=== PATIENT | male | born 1965 | race Caucasian/White ===

== ENCOUNTER 2020-10-21 18:44 | Emergency (ER) | payer OTHER ==
[~2020-10-21] VITALS: Ht 182.9 cm; Wt 104.5 kg
[2020-10-21 18:53] VITALS: TEMP 98.5
[2020-10-21 19:37] LABS: BASO % 0.4 % (0.0-2.0); EOS # 0.2 (0.0-0.7); EOS % 3.1 % (0-4.0); GRAN # 4.7 (1.4-6.5); GRAN % 60.4 % (42.2-75.2); HEMOGLOBIN 13.6 g/dl (13.5-18.0); LYMPH % 25.6 % (20.0-51.0); MEAN CELL VOLUME 80 fl (80.0-100.0); MEAN CORPUSCULAR HEMOGLOBIN 26 pg (27.0-31.0); MEAN CORPUSCULAR HGB CONC 32 g/dl (33.0-37.0); MEAN PLATELET VOLUME 9.8 fl (7.4-10.4); MONO # 0.8 (0.1-0.6); MONO % 10.1 % (1.7-9.3); PLATELET COUNT 201 K/mm3 (130-400); RED BLOOD COUNT 5.24 M/mm3 (4.20-5.60); REDCELL DISTRIBUTION WIDTH-CV 14.3 % (11.5-14.5)
[2020-10-21] MEDS ORDERED: XARELTO2.5 MG PO (19:43)
[2020-10-21 19:44] LABS: INR 1.6 (0.8-3.0); PROTHROMBIN TIME 18.3 SECONDS (9.7-12.8)
[2020-10-21] MEDS ORDERED: NEURONTIN400 MG/CAP PO (19:44)
[2020-10-21] MEDS ORDERED: MORPHINE 1515 MG/TAB PO (19:45)
[2020-10-21] MEDS ORDERED: PROTONIX 40MG T40 MG PO (19:45)
[2020-10-21 19:48] LABS: ALBUMIN 3.7 gm/dL (3.5-5.0); BILIRUBIN,TOTAL 0.3 mg/dL (0.0-1.0); CALCIUM 8.4 mg/dL (8.4-10.2); POTASSIUM 3.5 mmol/L (3.4-5.0); TOTAL PROTEIN 6.9 gm/dL (6.4-8.2)
[2020-10-21 19:55] LABS: CREATININE, serum 1.06 (0.66-1.25)
[2020-10-21 21:36] VITALS: BP 141/72; PULSE 102
== END 2020-10-21 21:50 | disposition home or self-care (01) ==
LOC: COL.ER 18:44
PROVIDERS: Emergency Medicine
DX: S00.80XA Unspecified superficial injury of other part of head, initial encounter (principal); F17.200 Nicotine dependence, unspecified, uncomplicated; Z79.01 Long term (current) use of anticoagulants; Z86.711 Personal history of pulmonary embolism; Z88.0 Allergy status to penicillin; X58.XXXA Exposure to other specified factors, initial encounter
CPT/HCPCS: Q9967